=== PATIENT | female | born 1995 | race Caucasian/White ===

== ENCOUNTER 2019-07-10 12:23 | Emergency (ER) | payer BC ==
[~2019-07-10] VITALS: Ht 167.6 cm; Wt 81.6 kg
[2019-07-10 12:59] LABS: *BILIRUBIN,URIN NEGATIVE (NEGATIVE); *BLOOD, URINE 2+ (NEGATIVE); *CLARITY,URINE CLEAR (CLEAR); *COLOR,URINE YELLOW (YELLOW); *KETONES,URINE NEGATIVE (NEGATIVE); *UROBILINOGEN,URINE 0.2 E.U./dl (NORMAL); LEUKOCYTE ESTERASE ,URINE TRACE (NEGATIVE); NITRITE, URINE NEGATIVE (NEGATIVE); UGLUCOSE NEGATIVE (NEGATIVE)
[2019-07-10 13:00] LABS: *URINE HCG, QUAL NEGATIVE (NEGATIVE)
[2019-07-10] MEDS ORDERED: LORAZEPAM 0.5 MG TABLET PO ONE (13:00)
[2019-07-10] MEDS ORDERED: LORAZEPAM 0.5 MG TABLET ONE (13:04)
--- NOTE | 2019-07-10 13:08 | NUR ---
Spoke with patient directly. Declined medication Ativan. Stated she does not want to be spoken to; that I should speak with "her nigga" (gentleman at her bedside). I insisted she be the one to agree if she is to take medications. She declined. I advised her to please let me know once she is ready to speak. She replied "okay, cool." Medication witheld. Dr. Young notified.
[2019-07-10 13:13] LABS: BACTERIA,URINE FEW /HPF (NONE SEEN); RBC,URINE NONE SEEN /HPF (0-3); URINE AMORPHOUS PHOSPHATES FEW /HPF; WBC,URINE 0-3 /HPF (0-3)
[2019-07-10 13:17] LABS: SQUAMOUS EPITHELIAL CELL,UR MODERATE /HPF (NONE SEEN)
[2019-07-10 13:53] LABS: *AMPHETAMINE, URINE NEGATIVE (NEGATIVE); *BARBITURATE, URINE NEGATIVE (NEGATIVE); *CANNABINOID, URINE POSITIVE (NEGATIVE); *COCCAINE, URINE NEGATIVE (NEGATIVE); *OPIATE, URINE NEGATIVE (NEGATIVE); *PHENCYCLIDINE SCREEN,URINE NEGATIVE (NEGATIVE)
--- NOTE | 2019-07-10 15:06 | NUR ---
PT HAD ARGUMENTS WITH HER PARENTS. PT DECIDED TO LEAVE HOSPITAL AMA. DR VARGAS EXPLAINED ALL RISKS OF LEAVING [facility] ER TO THE PT AND TO HER PARENTS. PT VERBALIZED FULL UNDERSTANDING OF DR VARGAS EXPLANATIONS. PT SIGNED AMA FORM AND LEFT [facility] ER.
[2019-07-10 15:13] VITALS: BP 127/71
== END 2019-07-10 15:13 | disposition left against medical advice (07) ==
LOC: ER 12:23
DX: F41.9 Anxiety disorder, unspecified (principal)
CPT/HCPCS: 80307; 84703; A4663